=== PATIENT | male | born 1980 | race Two or more races ===

== ENCOUNTER 2025-09-11 01:03 | Emergency (ER) | payer MEDICAID, SELFPAY ==
[2025-09-11 01:29] VITALS: BP 157/93; PULSE 96; RESP 16; TEMP 36.6; O2SAT 99
--- NOTE | 2025-09-11 01:34 | PD.EDMEDCL ---
ED Medical Clearance RME/HPI General Chief complaint: Medical Clearance Stated complaint: [facility] CLEARANCE Time Seen by Provider: 09/11/25 01:19 Arrival date/time: 09/11/25 01:03 RME / HPI RME / HPI Narrative: See [facility] for Dr. Salinas's HPI Documentation. Related Information Previous Rx's ?Medication ?Instructions ?Recorded [id number] 3.3 4 drp otic (ear) QID 7 days #10 mL 09/11/25 mg-3 mg-10 mg-0.5 mg/mL ear drops,susp (Cortisporin-TC) Review of Systems Review of Systems Systems Reviewed: All systems reviewed, normal except as documented Past Medical History Social History SMOKING STATUS: Former smoker ED Exam Narrative Physical exam: See [facility] for Dr. Salinas's Physical Exam Documentation. Course Quality Measures none Vital Signs Vital signs: Vital Signs Temperature 97.8 F 09/11/25 01:29 Pulse Rate 96 09/11/25 01:29 Respiratory Rate 16 09/11/25 01:29 Blood Pressure 157/93 H 09/11/25 01:29 Pulse Oximetry (%) 99 09/11/25 01:29 Oxygen Delivery Method Room Air 09/11/25 01:29 PROCEDURES: Ear Wax Removal Left Ear: Results: Re-examined: cerumen removed completely TM Examination: TM(s) erythematous and other (Auditory canal remarkable for erythema and edema) Ear Canal Exam: atraumatic Patient Tolerated Procedure: well Complications: no problems Technique: ear canal irrigated Medical Clearance [facility] Narrative [facility] Narrative:: This section includes all my notes and documentations, including HPI, PE, and ED course. Yunior Salinas MD HPI: 44 y/o male BIB law enforcement for detention medical clearance. Patient reported left ear pain and decreased hearing, concerned about eardrum rupture. No other complaints. ROS: All negative except as documented in HPI. Physical Exam: General: Alert and oriented. Eyes: Conjunctivae and lids clear. ENT: No nasal congestion. Pharynx normal. Right TM and auditory canal normal. Left auditory canal remarkable for cerumen impaction, TM not visible. Neck: Supple. Heart: RRR. Lungs: No respiratory distress. Good air movement with no rhonchi or wheezing or rales. Skin: Warm and dry. Neuro: Alert and oriented X 3. At this point, diagnoses include: Left cerumen impaction (otitis externa noted after irrigation) Medical Clearance for Incarceration Left auditory canal irrigated successfully, see procedure note. Prescribe ABX eardrops. Patient felt much better. Based on my best medical judgment, made decision to medically clear the patient for detention and no further evaluation or treatment indicated at this time. Patient understands and agrees to the discharge instructions customized and printed, see below. Discharge Instructions from Dr. Salinas printed for you: 1. After evaluation, your left eardrum did not rupture and there are no other signs of injury. 2. Cerumen impaction was removed from your left ear. 3. Use the eardrops as prescribed in your left ear for infection. See attached handout. 4. See a private doctor on 09/13/2025 or whenever you are released for recheck. Ask for help until you are completely better. 5. Seek immediate medical care with worsening or with any concerns. Yunior Salinas MD Patient data External records reviewed:: [facility] previous records (No prior ED records available for review) Clinical information provided by:: patient and law enforcement Social determinants that could affect healthcare access:: none Patient has the following chronic illnesses:: None reported How is presenting disease/condition affected by chronic disease/condition?: no chronic disease Evaluation data The following diagnostics were reviewed and interpreted by me:: other (specify) (N/A) Lab and/or radiology exams considered but not ordered:: None Interpretation Summary: N/A Medications / Prescriptions Medications or Prescriptions considered but not ordered:: None Medication administrations:: None Consultations Consultation(s) initiated? (list below): No Diagnosis Medical Clearance Differential Diagnosis: other (Sinusitis, Cerumen Impaction, Otitis Media, Otitis Externa, Pharyngitis, TM rupture) Most likely diagnosis given after review of the tests above:: At this point, diagnoses include: Left cerumen impaction (otitis externa noted after irrigation) Medical Clearance for Incarceration Admission Indicated Admission indicated?: not indicated Explain why admission is indicated or not indicated:: With significant improvement and no condition needing emergent intervention, there was no indication for admission. Admission Request Was there a request for admission?: No Disposition Plan Disposition Plan: Discharge (Signed out to law enforcement) Discharge Attestation Discharge Attestation: The patient and all family members were given an opportunity to ask questions and understood the discharge instructions. Discharge instructions specifically effects, indications for sooner follow up or return to the emergency department, and the expected course of current diagnosis. Patient condition: Stable Discharge Plan Plan Patient Disposition: Detention/Court/Law Prescriptions/Referrals Prescriptions/Med Rec: New Cortisporin-TC 3.3-3-10-0.5 mg/mL drops,suspension 4 drp otic (ear) QID 7 Days Qty: 10 0RF Problem List Clinical Impression: Medical clearance for incarceration, Left otitis externa Patient/Caregiver Discharge Instructions Discharge Activity: activity as tolerated Education Materials: ED External Ear Infection (Adult) Additional Instructions: Discharge Instructions from Dr. Salinas printed for you: 1. After evaluation, your left eardrum did not rupture and there are no other signs of injury. 2. Cerumen impaction was removed from your left ear. 3. Use the eardrops as prescribed in your left ear for infection. See attached handout. 4. See a private doctor on 09/13/2025 or whenever you are released for recheck. Ask for help until you are completely better. 5. Seek immediate medical care with worsening or with any concerns. Print Language: [place]
== END 2025-09-11 02:15 ==
PROVIDERS: Emergency Provider Emergency Medicine
DX: Z02.89 Encounter for other administrative examinations (principal); H60.92 Unspecified otitis externa, left ear
CPT/HCPCS: 99281